=== PATIENT | female | born 1970 | race Two or more races ===

== ENCOUNTER 2018-03-30 13:06 | Emergency (ER) | payer MEDICARE ==
[~2018-03-30] VITALS: Ht 149.9 cm; Wt 68.2 kg
[2018-03-30 13:10] VITALS: Ht 149.9 cm; Wt 68.2 kg
[2018-03-30] MEDS ORDERED: CELEXA20 MG PO (13:12)
[2018-03-30] MEDS ORDERED: DEPAKOTE ER500 MG PO (13:12)
[2018-03-30] MEDS ORDERED: CLONAZEPAM1 MG/TAB PO (13:13)
[2018-03-30] MEDS ORDERED: RISPERDAL1 MG PO (13:14)
[2018-03-30 13:54] LABS: BASOPHILS 0.2 % (0-2); EOSINOPHILS 0.1 % (0-7); HEMATOCRIT 43.6 % (36.0-48.0); HEMOGLOBIN 15.1 g/dL (12-16); IMMATURE GRANULOCYTES 0.3 % (0-5); LYMPHOCYTES 18.2 % (15-50); MCH 31.9 pg (26.0-34.0); MCHC 34.6 g/dL (31.0-37.0); MEAN PLATELET VOLUME 9.6 fL (7.4-10.4); MONOCYTES 9.3 % (2-11); NEUTROPHILS 71.9 % (40-80); PLATELET COUNT 270 10x3/uL (130-400); RBC 4.74 10x6/uL (4.00-5.40); RDW 13.1 % (11.5-14.5); WBC 13.4 10x3/uL (4.8-10.8)
[2018-03-30 14:07] LABS: ALBUMIN 4.2 g/dL (3.4-5.0); ANION GAP 13.9 mmol/L (8-16); BILIRUBIN - TOTAL 0.84 mg/dL (0.2-1.3); CALCIUM 9.5 mg/dL (8.5-10.1); CARBON DIOXIDE 24.6 mmol/L (21.0-32.0); CREATININE - SERUM 1.3 mg/dL (0.6-1.3); POTASSIUM - SERUM 3.5 mmol/L (3.5-5.1); PROTEIN - SERUM 8.2 g/dL (6.4-8.2)
[2018-03-30 14:08] LABS: VALPROIC ACID (DEPAKOTE) 1.2 ug/mL (50.0-100.0)
[2018-03-30 15:11] LABS: APPEARANCE HAZY (CLEAR); BILIRUBIN NEGATIVE (NEGATIVE); COLOR AMBER (YELLOW); GLUCOSE NEGATIVE (NEGATIVE); KETONE NEGATIVE (NEGATIVE); NITRITE NEGATIVE (NEGATIVE); PROTEIN NEGATIVE (NEGATIVE); UROBILINOGEN NORMAL (NORMAL)
[2018-03-30 15:13] LABS: BACTERIA MODERATE /hpf (NONE SEEN); WHITE CELLS - URINE 0-5 /hpf (0-5)
[2018-03-30 15:43] LABS: UDS - AMPHET POSITIVE QUAL (NEGATIVE); UDS - BARB NEGATIVE QUAL (NEGATIVE); UDS - BENZO NEGATIVE QUAL (NEGATIVE); UDS - COCAINE NEGATIVE QUAL (NEGATIVE); UDS - OPIATE NEGATIVE QUAL (NEGATIVE); UDS - PCP NEGATIVE QUAL (NEGATIVE); UDS - THC POSITIVE QUAL (NEGATIVE)
[2018-03-30] MEDS ORDERED: OMEPRAZOLE40 MG PO (17:40)
[2018-03-30 22:46] VITALS: BP 103/80
== END 2018-03-30 22:47 ==
LOC: D.ER 13:06
PROVIDERS: Family Medicine
DX: F32.9 Major depressive disorder, single episode, unspecified (principal); F15.10 Other stimulant abuse, uncomplicated; F17.200 Nicotine dependence, unspecified, uncomplicated